=== PATIENT | female | born 1975 | race Hispanic/Latino ===

== ENCOUNTER 2017-11-06 17:03 | Emergency (ER) | payer OTHER ==
[2017-11-06] MEDS ORDERED: DEXAMETHASONE SOD PHOSPHATE 10MG/ML 1ML VIAL ONE (17:47)
[2017-11-06] MEDS ORDERED: KETOROLAC TROMETHAMINE 30MG/ML ONE (17:48)
== END 2017-11-06 18:06 | disposition home or self-care (01) ==
LOC: EDH 17:03
DX: K64.9 Unspecified hemorrhoids (principal); K60.2 Anal fissure, unspecified
CPT/HCPCS: 96372 ×2; 99284; J1100; J1885